=== PATIENT | male | born 1960 | race Caucasian/White ===

== ENCOUNTER → 2017-12-30 | Outpatient (CLI) | payer OTHER ==
--- NOTE | 2017-12-30 14:40 | RAD ---
Left axillary ultrasound soft tissues nonvascular History: Palpable abnormality for several months Sonographic examination of the left axilla performed and multiple static images were obtained There is a moderately enlarged lymph node which measures 5.6 cm in length but 2.0 cm in width. This has a thickened lobulated cortex but does maintain a echogenic hilum. There is a second adjacent lymph node which is mildly enlarged measuring 10 x 12 mm. Impression: Moderately enlarged lymph node and mildly enlarged lymph node in the left axilla causing the palpable abnormality. This is suspicious for lymphoma. Metastatic cancer should be considered if the patient is at high risk for a primary cancer. Recommend ultrasound-guided biopsy. The radiology department is attempting to contact the nurse practitioner Luli Judge. FOR INTERNAL CODING PURPOSES Critical result: Attempts are being made to contact LUCY NORMAN at 12/30/2017 2:37 PM. RESULT CODE: (C)
== END | disposition home or self-care (01) ==
LOC: US 13:36
PROVIDERS: ATTEND Physician Assistant Medical
DX: R22.32 Localized swelling, mass and lump, left upper limb (principal)
CPT/HCPCS: 76881

== ENCOUNTER → 2018-02-09 | Outpatient (CLI) | payer OTHER ==
--- NOTE | 2018-02-10 08:41 | RAD ---
Radionuclide MUGA scan, 02/09/2018: History: Cardiomyopathy The study was performed utilizing 24.9 mCi of technetium 99m and a labeled red blood cell technique. The left ventricular ejection fraction was calculated at 44.9%. No focal dyskinetic or akinetic left ventricular segment is seen. IMPRESSION: Mildly decreased left ventricular ejection fraction of 44.9%
== END | disposition home or self-care (01) ==
LOC: NM 07:47
PROVIDERS: ATTEND Internal Medicine Cardiovascular Disease
DX: I42.9 Cardiomyopathy, unspecified (principal)
CPT/HCPCS: 78472; 96374; A9560

== ENCOUNTER 2018-06-16 17:27 | Emergency (ER) | payer OTHER ==
[~2018-06-16] VITALS: Ht 182.9 cm; Wt 91.5 kg
--- NOTE | 2018-06-16 17:58 | ED.ADGEN ---
Past History Past Medical History: Cancer, Kidney Stones, Other Past Surgical History: Other Alcohol Use: Occasionally Drug Use: Marijuana Adult General Chief Complaint Chief Complaint "... I got this rt. lower abd. pain.. I have had kidney stones... but it does not feel like that... I just finshed my 6th round of chemo Tx. 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 I did have a CT on 06/15 for the follow up... ".. " Dr. Cast stated everything looked good..." HPI HPI Patient is a 58 year old male who presents with above hx and complaints of Rt. flank and lower Rt. abdomen pain. Pt. had CT of abdomen on 06-15-18. At that time axillary nodes- improved, Rt. lower lung node- resolved. Several sub centimeter liver lesions, unchanged, small retroperitoneal nodes, bladder wall thicken, prostatomegaly. Did have intra Renal stones, no obstructive stones . Appendix was normal. Pt. denies any changes of meds. It has been 2 weeks from last Chemo.--on three week cycle chemo round 6. Pt. denies trauma, travel or ill contacts. No intake bad food. Pt. does have Rt inguinal hernia. No problems with urination or defecation. Pt. has been following with Dr. Cast- for his chemotherapy. Pt. rates pain as 10/10, and so severe it has cause him to vomit. Review of Systems Review of Systems Constitutional: Denies fever or chills [] Eyes: Denies change in visual acuity, redness, or eye pain [] HENT: Denies nasal congestion or sore throat [] Respiratory: Denies cough or shortness of breath [] Cardiovascular: No additional information not addressed in HPI [] GI: Complaints abdominal pain, nausea, vomiting,. Denies bloody stools or diarrhea [] : Denies dysuria or hematuria [] Musculoskeletal: Denies back pain or joint pain [] Integument: Denies rash or skin lesions [] Neurologic: Denies headache, focal weakness or sensory changes [] Endocrine: Denies polyuria or polydipsia [] All other systems were reviewed and found to be within normal limits, except as documented in this note. Family History Family History Noncontributory Current Medications Current Medications Current Medications Medications (Trade) Dose Ordered Sig/Lali Start Time Stop Time Status Last Admin Dose Admin Famotidine (Pepcid Vial) 20 mg 1X ONCE 06/16/18 18:00 06/16/18 18:01 DC 06/16/18 18:53 20 MG Lactated Ringer's 1,000 ml @ 1,000 mls/hr Q1H 06/16/18 18:00 10 18:59 DC 06/16/18 18:53 1,000 MLS/HR Levofloxacin (Levaquin) 500 mg 1X ONCE 06/16/18 19:15 06/16/18 19:16 DC 06/16/18 20:01 500 MG Morphine Sulfate (Morphine 10mg Syringe) 10 mg 1X ONCE 06/16/18 21:00 06/16/18 21:01 DC Nitroglycerin (Nitro-Bid Oint) 1 inch 1X ONCE 06/16/18 19:45 06/16/18 19:46 DC 06/16/18 20:01 1 INCH Ondansetron HCl (Zofran) 8 mg 1X ONCE 06/16/18 18:00 06/16/18 18:01 DC 06/16/18 18:53 8 MG Prochlorperazine Edisylate (Compazine) 10 mg 1X ONCE 06/16/18 21:15 06/16/18 21:16 UNV Promethazine HCl (Phenergan) 25 mg STK-MED ONCE 06/16/18 21:08 06/16/18 21:10 DC Allergies Allergies Allergies Coded Allergies Type Severity Reaction Last Updated Verified No Known Drug Allergies 06/16/18 No Physical Exam Physical Exam Constitutional: Moderate to severe acute distress, ill in appearance. [] HENT: Normocephalic, atraumatic, bilateral external ears normal, oropharynx moist, no oral exudates, nose normal. [] Eyes: PERRLA, EOMI, conjunctiva normal, no discharge. [] Neck: Normal range of motion, no tenderness, supple, no stridor. [] Cardiovascular: Cardiac Heart rate regular rhythm, no murmur [] Lungs & Thorax: Bilateral breath sounds clear apexes on auscultation [right chest wall port. Abdomen: Bowel sounds decreased, soft, right flank and right lower abdomen tenderness, no masses, no pulsatile masses. [] Hernia inguinal. Skin: Warm, diaphoretic, no erythema, no rash. [] Back: No tenderness, right CVA tenderness. [] Extremities: No tenderness, no cyanosis, no clubbing, ROM intact, no edema. [] No psoas or appears sign. Neurologic: Alert and oriented X 3, normal motor function, normal sensory function, no focal deficits noted. [] Psychologic: Affect anxious, judgement normal, mood normal. [] Current Patient Data Vital Signs Vital Signs Date Time Temp Pulse Resp B/P (MAP) Pulse Ox O2 Delivery O2 Flow Rate FiO2 06/16/18 20:01 88 160/96 06/16/18 19:43 15 96 Room Air 06/16/18 17:35 98.2 Lab Results Laboratory Tests Test 06/16/18 18:02 06/16/18 18:30 Urine Collection Type Unknown Urine Color Yellow Urine Clarity Clear Urine pH 6.5 Urine Specific Staples 1.020 Urine Protein Neg (NEG-TRACE) Urine Glucose (UA) Neg mg/dL (NEG) Urine Ketones (Stick) Neg mg/dL (NEG) Urine Blood Mod (NEG) Urine Nitrite Neg (NEG) Urine Bilirubin Neg (NEG) Urine Urobilinogen Dipstick 0.2 mg/dL (0.2 mg/dL) Urine Leukocyte Esterase Neg (NEG) Urine RBC 20-40 /HPF (0-2) Urine WBC 1-4 /HPF (0-4) Urine Squamous Epithelial Cells Occ /LPF Urine Bacteria Few /HPF (0-FEW) Urine Mucus Slight /LPF White Blood Count 11.9 x10^3/uL (4.0-11.0) H Red Blood Count 3.73 x10^6/uL (4.30-5.70) L Hemoglobin 12.3 g/dL (13.0-17.5) L Hematocrit 37.2 % (39.0-53.0) L Mean Corpuscular Volume 100 fL (79-100) Mean Corpuscular Hemoglobin 33 pg (25-35) Mean Corpuscular Hemoglobin Concent 33 g/dL (31-37) Red Cell Distribution Width 16.4 % (11.5-14.5) H Platelet Count 241 x10^3/uL (140-400) Neutrophils (%) (Auto) 87 % (31-73) H Lymphocytes (%) (Auto) 6 % (24-48) L Monocytes (%) (Auto) 7 % (0-9) Eosinophils (%) (Auto) 0 % (0-3) Basophils (%) (Auto) 0 % (0-3) Neutrophils # (Auto) 10.4 x10^3uL (1.8-7.7) H Lymphocytes # (Auto) 0.7 x10^3/uL (1.0-4.8) L Monocytes # (Auto) 0.8 x10^3/uL (0.0-1.1) Eosinophils # (Auto) 0.0 x10^3/uL (0.0-0.7) Basophils # (Auto) 0.0 x10^3/uL (0.0-0.2) Prothrombin Time 10.3 SEC (9.4-11.4) Prothrombin Time INR 1.0 (0.9-1.1) PTT 23 SEC (23-33) Sodium Level 140 mmol/L (136-145) Potassium Level 4.2 mmol/L (3.5-5.1) Chloride Level 104 mmol/L (98-107) Carbon Dioxide Level 29 mmol/L (21-32) Anion Gap 7 (6-14) Blood Urea Nitrogen 15 mg/dL (8-26) Creatinine 1.3 mg/dL (0.7-1.3) Estimated GFR (Cockcroft-Gault) 56.3 Glucose Level 101 mg/dL (70-99) H Calcium Level 9.2 mg/dL (8.5-10.1) Total Bilirubin 0.2 mg/dL (0.2-1.0) Direct Bilirubin 0.1 mg/dL (0.0-0.2) Aspartate Amino Transferase (AST) 22 U/L (15-37) Alanine Aminotransferase (ALT) 25 U/L (16-63) Alkaline Phosphatase 112 U/L (46-116) Creatine Kinase 135 U/L (39-308) Troponin I Quantitative 0.155 ng/mL (0-0.055) H Total Protein 6.8 g/dL (6.4-8.2) Albumin 3.7 g/dL (3.4-5.0) Amylase Level 42 U/L (25-115) Lipase 104 U/L (73-393) EKG EKG My interpretation EKG shows a sinus rhythm at 89 bpm. Some nonspecific anterior lateral changes. No findings acute STEMI with contralateral changes.[] Radiology/Procedures Radiology/Procedures My interpretation of abdomen film shows pulmonary area no acute cardiopulmonary changes. No free air in the diaphragm. There is a port on right chest wall. Does have contrast in his abdomen from previous CT. Does have a few isolated loops of bowel. Overall is a nonobstructive bowel gas pattern. CT of abdomen shows dependent atelectasis bilaterally in lungs. There is mild to moderate obstruction right collecting system with a distal 1 cm calculus. There are multiple diverticuli colon. No obvious inflammatory changes. Appendix is well visualized and normal. See formal reading when available. Course & Med Decision Making Course & Med Decision Making Pertinent Labs and Imaging studies reviewed. (See chart for details) Discussed with Dr. Billings presentation, and testing. Recommend transfer to [facility]- for Urology, Oncology and Cardiology consults. Dr. Billings states he will be the accepting physician. [] Final Impression Final Impression 1. Rt. Lower Abd. Pain[]- Suspect renal colic 2. History of large cell B non-Hodgkin's lymphoma- has had 6 rounds to chemotherapy 3. History of renal stones-1 cm UPJ obstructing Rt 4. History of right inguinal hernia 5. Hematuria 6. Elevated Trop. 0.155 7. Leukocytosis- 11.9 8. Anemia 12.3 Dragon Disclaimer Dragon Disclaimer This electronic medical record was generated, in whole or in part, using a voice recognition dictation system. JENNIFER SABILLON MD Jun 16, 2018 17:58
[2018-06-16] MEDS ORDERED: IV RINGERS SOLUTION,LACTATED 1,000 ML IV SCH (18:00)
[2018-06-16] MEDS ORDERED: FAMOTIDINE 20 MG/2 ML VIAL IVP ONE (18:00)
[2018-06-16] MEDS ORDERED: ONDANSETRON PF 4 MG/2 ML VIAL. IV ONE (18:00)
[2018-06-16] MEDS ORDERED: MORPHINE SULFATE 10 MG/ML SYRINGE. SQ ONE ×3 (18:00→21:00)
[2018-06-16 18:23] LABS: BACTERIA,URINE FEW /HPF (0-FEW); BILIRUBIN,URINE NEG (NEG); CLARITY,URINE CLEAR; COLOR,URINE YELLOW; GLUCOSE,URINE NEG (NEG); NITRITE,URINE NEG (NEG); RBC,URINE 20-40 /HPF (0-2); SQUAMOUS EPITHELIAL CELL,UR OCC /LPF; UROBILINOGEN,URINE 0.2 mg/dL (0.2 mg/dL)
--- NOTE | 2018-06-16 18:44 | EKG ---
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
[2018-06-16 18:46] LABS: BASO % 0 % (0-3); EOS % 0 % (0-3); HEMATOCRIT 37.2 % (39.0-53.0); HEMOGLOBIN 12.3 g/dL (13.0-17.5); LYMPH # 0.7 x10^3/uL (1.0-4.8); LYMPH % 6 % (24-48); MEAN CORPUSCULAR HEMOGLOBIN 33 pg (25-35); MEAN CORPUSCULAR HGB CONC 33 g/dL (31-37); MEAN CORPUSCULAR VOLUME 100 fL (79-100); MONO # 0.8 x10^3/uL (0.0-1.1); MONO % 7 % (0-9); NEUT # 10.4 x10^3uL (1.8-7.7); NEUT % 87 % (31-73); PLATELET COUNT 241 x10^3/uL (140-400); RED BLOOD COUNT 3.73 x10^6/uL (4.30-5.70); RED CELL DISTRIBUTION WIDTH 16.4 % (11.5-14.5); WHITE BLOOD COUNT 11.9 x10^3/uL (4.0-11.0)
[2018-06-16 18:58] LABS: ALBUMIN 3.7 g/dL (3.4-5.0); CALCIUM 9.2 mg/dL (8.5-10.1); CREATININE 1.3 mg/dL (0.7-1.3); DIRECT BILIRUBIN 0.1 mg/dL (0.0-0.2); GFR 56.3; POTASSIUM 4.2 mmol/L (3.5-5.1); TOTAL BILIRUBIN 0.2 mg/dL (0.2-1.0); TOTAL PROTEIN 6.8 g/dL (6.4-8.2)
[2018-06-16] MEDS ORDERED: levoFLOXacin 500 MG TABLET PO ONE (19:15)
[2018-06-16] MEDS ORDERED: NITROGLYCERIN OINT 1 GM PACKET. TP ONE (19:45)
--- NOTE | 2018-06-16 19:45 | RAD ---
CT scan of the abdomen and pelvis with contrast 06/16/2018 CLINICAL HISTORY: Right lower quadrant abdominal pain. History of lymphoma. Hematuria. TECHNIQUE: Unenhanced, contiguous, 3 mm axial sections were obtained through the abdomen and pelvis. One or more of the following individualized dose reduction techniques were utilized for this study: 1. Automated exposure control. 2. Adjustment of the mA and/or kV according to patient size. 3. Use of iterative reconstruction technique. FINDINGS: Comparison is made to a CT scan of the abdomen and pelvis dated 06/15/2018. This was performed at [facility]. Images through the lung bases demonstrate minimal dependent subsegmental atelectasis bilaterally. The liver, spleen, pancreas, and adrenal glands are within normal limits. Multiple nonobstructing calculi are seen scattered throughout both kidneys. These measure 2 to 4 mm in size. A 1 cm calculus is seen within the right UPJ. This is causing mild obstruction of the right collecting system. This has migrated slightly inferiorly and laterally since the previous study. There is no evidence of obstruction of the left collecting system. Atherosclerotic calcification of the abdominal aorta and its branches is noted. The gallbladder is contracted. No free fluid or free air is the abdomen. There is no evidence of bowel obstruction. The appendix is well-visualized and is within normal limits. Images through pelvis demonstrate the urinary bladder distended with urine. Calcifications are seen within the prostate gland. Multiple diverticula are seen involving the sigmoid colon. No inflammatory changes are seen in the adjacent fat. No free fluid is seen. IMPRESSION: 1 cm right UPJ calculus is seen which is causing mild obstruction of the right collecting system. Electronically signed by: Dante Prakash MD (06/16/2018 7:41 PM) [facility]
--- NOTE | 2018-06-16 20:12 | RAD ---
Acute abdominal series to include a PA chest radiograph 06/16/2018 Clinical History: Right lower quadrant abdominal pain. Right flank pain. A PA digital radiograph of the chest was obtained. Supine and erect AP digital radiographs of the abdomen/pelvis were obtained. A right internal jugular [id number]-[id number] type catheter is seen with its tip extending to overlie the superior vena cava. The cardiac silhouette is normal in size. The thoracic aorta is mildly tortuous. No acute pulmonary infiltrate is seen. No pleural effusion or pneumothorax is noted. Oral contrast material is seen throughout the colon. The abdominal bowel gas pattern is nonobstructive. There is no evidence of free air. No radiopaque calculus is seen. Degenerative changes are seen involving the thoracic and lumbar spine. Impression: Nonobstructive bowel gas pattern. Electronically signed by: Dante Prakash MD (06/16/2018 8:08 PM) [facility]
[2018-06-16 20:48] VITALS: BP 151/98
[2018-06-16] MEDS ORDERED: PROMETHAZINE 25 MG TABLET. ONE (21:08)
[2018-06-16] MEDS ORDERED: PROCHLORPERAZINE 10 MG/2 ML VIAL. IM ONE ×3 (21:15→21:30)
== END 2018-06-16 21:18 | disposition short-term general hospital (02) ==
LOC: ER 17:27
DX: R10.31 Right lower quadrant pain (principal); C85.90 Non-Hodgkin lymphoma, unspecified, unspecified site; R31.9 Hematuria, unspecified; D72.829 Elevated white blood cell count, unspecified; D64.9 Anemia, unspecified; R79.89 Other specified abnormal findings of blood chemistry; R11.2 Nausea with vomiting, unspecified; Z87.442 Personal history of urinary calculi
CPT/HCPCS: 36415; 74022; 74176; 80048; 80076; 81001; 82150; 82550; 83690; 84484; 85025; 85610; 85730; 93005; 96361; 96372; 96374; 96375; 99285; J0780; J2270; J2405; J7120; S0028

== ENCOUNTER 2019-05-03 13:18 | Emergency (ER) | payer OTHER ==
[~2019-05-03] VITALS: Ht 182.9 cm; Wt 91.5 kg
[2019-05-03 13:20] VITALS: BP 165/104
--- NOTE | 2019-05-03 13:59 | PHYS DOC ---
Past History Past Medical History: Cancer (non-Hodgkin's lymphoma), Kidney Stones, Other Past Surgical History: Other Smoking: Non-smoker Alcohol Use: Occasionally Drug Use: Marijuana Adult General Chief Complaint Chief Complaint: FACE PROBLEM HPI HPI Patient is a 59-year-old male with left-sided facial weakness that began last evening, uncertain time. No change in vision. No fever. No neck stiffness. He does have a history of non-Hodgkin's lymphoma, not currently on any chemotherapy or radiation therapy. No nausea or vomiting. No new weakness in either arm or leg. No new numbness in either arm or leg. No fever.[] Review of Systems Review of Systems Constitutional: Denies fever or chills [] Eyes: Denies change in visual acuity, redness, or eye pain [] HENT: Denies nasal congestion or sore throat [] Respiratory: Denies cough or shortness of breath [] Cardiovascular: No chest pain or palpitations[] GI: Denies abdominal pain, nausea, vomiting, bloody stools or diarrhea [] : Denies dysuria or hematuria [] Musculoskeletal: Denies back pain or joint pain [] Integument: Denies rash or skin lesions [] Neurologic: Denies headache,, see history of present illness, or sensory changes [] Endocrine: Denies polyuria or polydipsia [] All other systems were reviewed and found to be within normal limits, except as documented in this note. Allergies Allergies Allergies Coded Allergies Type Severity Reaction Last Updated Verified No Known Drug Allergies 06/16/18 No Physical Exam Physical Exam Constitutional: Well developed, well nourished, no acute distress, non-toxic appearance. [] HENT: Normocephalic, atraumatic, bilateral external ears normal, oropharynx moist, no oral exudates, nose normal. [] Eyes: PERRLA, EOMI, conjunctiva normal, no discharge. [] Neck: Normal range of motion, no tenderness, supple, no stridor. [] Cardiovascular:Heart rate regular rhythm, no murmur [] Lungs & Thorax: Bilateral breath sounds clear to auscultation [] Abdomen: Bowel sounds normal, soft, no tenderness, no masses, no pulsatile masses. [] Skin: Warm, dry, no erythema, no rash. [] Back: No tenderness, no CVA tenderness. [] Extremities: No tenderness, no cyanosis, no clubbing, ROM intact, no edema. [] Neurologic: Alert and oriented X 3, normal motor function, normal sensory function, no focal deficits noted. [] Psychologic: Affect normal, judgement normal, mood normal. [] Current Patient Data Vital Signs Vital Signs Date Time Temp Pulse Resp B/P (MAP) Pulse Ox O2 Delivery O2 Flow Rate FiO2 05/03/19 13:20 98.3 98 EKG EKG EKG shows a sinus rhythm at 92 bpm, left axis, patient will PVC, as well as PAC, QTC at 455 ms, no ST elevations. Interpreted by me at 1355[] Radiology/Procedures Radiology/Procedures PROCEDURE: CT HEAD WO CONTRAST CT HEAD WO CONTRAST History: Left facial drooping Comparison: None. Technique: Noncontrast CT imaging was performed of the head. Exposure: One or more of the following individualized dose reduction techniques were utilized for this examination: 1. Automated exposure control 2. Adjustment of the mA and/or kV according to patient size 3. Use of iterative reconstruction technique. Findings: There is mild motion. No acute extra-axial or parenchymal hemorrhage is identified. There is no significant intra-axial mass effect, midline shift, or extra-axial fluid collection. The baxter-white differentiation of the major vascular territories is preserved. The ventricles, sulci, and cisterns are within normal limits in size and configuration. The mastoid air cells and the visualized paranasal sinuses are aerated. No acute calvarial abnormality is identified. Impression: 1. No acute intracranial abnormality is identified. PROCEDURE: CHEST PA & LATERAL CHEST PA LATERAL History: Left facial drooping Comparison: 06/16/2018 Findings: 2 views of the chest are submitted. There is no infiltrate, pneumothorax, or effusion. Pericardial cardiac silhouette is within normal limits in size. Previously seen right port catheter has been removed. Impression: 1. There is no radiographic evidence of acute cardiopulmonary disease. [] Course & Med Decision Making Course & Med Decision Making Pertinent Labs and Imaging studies reviewed. (See chart for details) ED course: Patient arrived, was placed in bed, and tolerated exam well. He was transported to and from radiology with any complications. After return of the laboratory and imaging findings these were discussed with patient and family voiced understanding. All questions were answered. He was discharged in improved condition. Decision-making: Patient appears to have Hough's pulse. We'll treat with steroids and antivirals. We will also provide tape for him to be able to keep his eye closed at night. There is no evidence of intracranial mass or bleed. This does not appear to be a specific stroke syndrome. No evidence of Quincy Mobley syndrome[] Dragon Disclaimer Dragon Disclaimer This electronic medical record was generated, in whole or in part, using a voice recognition dictation system. Departure Departure: Impression: Primary Impression: Hough's palsy Disposition: HOME, SELF-CARE Condition: IMPROVED Referrals: WALLY RUFFIN (PCP) Follow-up in 2 days Patient Instructions: Hough's Palsy Additional Instructions: Follow-up with your regular doctor in 2 days. Take the medication as prescribed. Return to the ER if worsening discomfort or any other concerns. Scripts [lacrilube] No Conflict Check 1 KAMI OS Q2HR W/A for hough's palsy, #1 BOT Prov: HALIMA LOONEY DO 05/03/19 Prednisone (PREDNISONE) 50 Mg Tablet 1 TAB PO DAILY for Hough's palsy, #7 TAB Prov: HALIMA LOONEY DO 05/03/19 Acyclovir (ACYCLOVIR) 800 Mg Tablet 1 TAB PO 5XDAY for Hough's palsy, #50 TAB Prov: HALIMA LOONEY DO 05/03/19 HALIMA LOONEY DO May 03, 2019 13:59
[2019-05-03 14:01] LABS: BASO % 1 % (0-3); EOS # 0.1 x10^3/uL (0.0-0.7); EOS % 2 % (0-3); HEMATOCRIT 49.5 % (39.0-53.0); LYMPH # 1.2 x10^3/uL (1.0-4.8); LYMPH % 21 % (24-48); MEAN CORPUSCULAR HEMOGLOBIN 35 pg (25-35); MEAN CORPUSCULAR HGB CONC 34 g/dL (31-37); MEAN CORPUSCULAR VOLUME 101 fL (79-100); MONO # 0.5 x10^3/uL (0.0-1.1); MONO % 8 % (0-9); NEUT % 68 % (31-73); PLATELET COUNT 214 x10^3/uL (140-400); RED CELL DISTRIBUTION WIDTH 13.3 % (11.5-14.5); WHITE BLOOD COUNT 5.9 x10^3/uL (4.0-11.0)
[2019-05-03 14:09] LABS: ALBUMIN 3.8 g/dL (3.4-5.0); ALBUMIN/GLOBULIN RATIO 1.1 (1.0-1.7); CALCIUM 8.8 mg/dL (8.5-10.1); CREATININE 1.9 mg/dL (0.7-1.3); GFR 36.2; MAGNESIUM 1.9 mg/dL (1.8-2.4); POTASSIUM 3.9 mmol/L (3.5-5.1); TOTAL BILIRUBIN 0.5 mg/dL (0.2-1.0); TOTAL PROTEIN 7.4 g/dL (6.4-8.2)
--- NOTE | 2019-05-03 14:13 | RAD ---
CHEST PA LATERAL History: Left facial drooping Comparison: 06/16/2018 Findings: 2 views of the chest are submitted. There is no infiltrate, pneumothorax, or effusion. Pericardial cardiac silhouette is within normal limits in size. Previously seen right port catheter has been removed. Impression: 1. There is no radiographic evidence of acute cardiopulmonary disease. Electronically signed by: Jamaal Krause MD (05/03/2019 2:10 PM) [email or web address]
--- NOTE | 2019-05-03 14:14 | RAD ---
CT HEAD WO CONTRAST History: Left facial drooping Comparison: None. Technique: Noncontrast CT imaging was performed of the head. Exposure: One or more of the following individualized dose reduction techniques were utilized for this examination: 1. Automated exposure control 2. Adjustment of the mA and/or kV according to patient size 3. Use of iterative reconstruction technique. Findings: There is mild motion. No acute extra-axial or parenchymal hemorrhage is identified. There is no significant intra-axial mass effect, midline shift, or extra-axial fluid collection. The baxter-white differentiation of the major vascular territories is preserved. The ventricles, sulci, and cisterns are within normal limits in size and configuration. The mastoid air cells and the visualized paranasal sinuses are aerated. No acute calvarial abnormality is identified. Impression: 1. No acute intracranial abnormality is identified. Electronically signed by: Jamaal Krause MD (05/03/2019 2:11 PM) [email or web address]
--- NOTE | 2019-05-03 14:22 | EKG ---
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
[2019-05-03] MEDS ORDERED: PRED50TA PO (14:29)
[2019-05-03] MEDS ORDERED: ACYC800T PO (14:29)
[2019-05-03] MEDS ORDERED: lacrilube OS (14:29)
== END 2019-05-03 14:38 | disposition home or self-care (01) ==
LOC: ER 14:10
DX: G51.0 Bell's palsy (principal); Z85.72 Personal history of non-Hodgkin lymphomas; Z87.442 Personal history of urinary calculi
CPT/HCPCS: 36415; 70450; 71046; 80053; 83735; 84484; 85025; 93005; 99285

== ENCOUNTER → 2019-05-18 | Outpatient (CLI) | payer OTHER ==
[2019-05-03 13:20] VITALS: BP 165/104
[~2019-05-18] MED LIST: ACYC800T PO; PRED50TA PO; lacrilube OS
--- NOTE | 2019-05-18 19:31 | RAD ---
EXAM: AP, lateral, bilateral oblique and open-mouth odontoid views of the cervical spine DATE: 05/18/2019 12:00 AM CLINICAL HISTORY: Neck pain COMPARISON: None available. FINDINGS: On the lateral view, the cervical spine is imaged from the skull base to C7. Vertebral body heights are preserved. Severe disc height loss C6-7. Moderate disc height loss C5-6. Trace anterolisthesis of C4 on C5 and C5 on C6. Advanced facet degenerative changes are seen. Mild degenerative changes are seen. Normal predental space. No significant prevertebral soft tissue swelling. There are moderate facet degenerative changes at C3-4, C4-5 and C5-6 bilaterally. IMPRESSION: 1. Multilevel spondylosis as above 2. Negative acute fracture or subluxation. Electronically signed by: Ross Lanza MD (05/18/2019 4:37 PM) [facility]
== END | disposition home or self-care (01) ==
LOC: DXRAD 10:13
PROVIDERS: ATTEND Physician Assistant Medical
DX: M47.892 Other spondylosis, cervical region (principal)
CPT/HCPCS: 72050